=== PATIENT | female | born 1980 | race Caucasian/White ===

== ENCOUNTER 2018-12-11 06:44 | Emergency (ER) | payer OTHER ==
[~2018-12-11] VITALS: Ht 154.9 cm; Wt 60.0 kg
--- NOTE | 2018-12-11 08:01 | REP ---
Chest x-ray: Two views. History: Abdominal pain. Left arm numbness. . Comparison study: No comparison chest x-ray. . Findings: The lungs are well inflated and free of infiltrate. The pleural angles are sharp. The heart size is normal. Pulmonary vasculature is not increased. No significant bony abnormality is seen. Impression: Negative chest x-ray. Electronically Signed by Mt Mendiola MD 12/11/2018 07:53 A
[2018-12-11 08:10] LABS: BASO # 0.1 10^3/uL (0.0-0.2); BASO % 1.9 % (0.0-1.0); EOS % 0.9 % (0.0-3.0); HEMATOCRIT 41.2 % (36.0-47.0); HEMOGLOBIN 13.7 g/dl (12.0-15.5); LYMPH # 1.6 10^3/uL (1.5-4.5); LYMPH % 33.6 % (24.0-44.0); MEAN CORPUSCULAR HEMOGLOBIN 32.5 pg (27.0-33.0); MEAN CORPUSCULAR HGB CONC 33.3 g/dl (32.0-36.5); MEAN CORPUSCULAR VOLUME 97.6 fl (80.0-96.0); MONO # 0.3 10^3/uL (0.0-0.8); MONO % 6.6 % (0.0-5.0); NEUTROPHILS # 2.7 10^3/uL (1.8-7.7); NEUTROPHILS % 56.8 % (36.0-66.0); PLATELET COUNT, AUTOMATED 183 10^3/uL (150-450); RED BLOOD COUNT 4.22 10^6/uL (4.00-5.40); WHITE BLOOD COUNT 4.7 10^3/uL (4.0-10.0)
[2018-12-11 08:54] LABS: BLOOD UREA NITROGEN 8 MG/DL (7-18); CREATININE FOR GFR 0.77 MG/DL (0.55-1.30); GLOMERULAR FILTRATION RATE > 60.0 (>60); GLUCOSE, FASTING 82 MG/DL (70-100)
[2018-12-11 08:55] LABS: CARBON DIOXIDE LEVEL 30 MEQ/L (21-32); CHLORIDE LEVEL 104 MEQ/L (98-107); POTASSIUM SERUM 3.5 MEQ/L (3.5-5.1); SODIUM LEVEL 142 MEQ/L (136-145)
[2018-12-11 08:56] LABS: ALT/SGPT 53 U/L (12-78); BILIRUBIN,DIRECT 0.2 MG/DL (0.0-0.2); BILIRUBIN,TOTAL 0.8 MG/DL (0.2-1.0); CALCIUM LEVEL 9.2 MG/DL (8.5-10.1); CK-MB VALUE MASS 1.2 NG/ML (<3.6); CPK CREATINE PHOSPHOKINASE 96 U/L (26-192); MB/CK RELATIVE INDEX 1.25 (< OR =4); TOTAL PROTEIN 7.3 GM/DL (6.4-8.2)
[2018-12-11 08:57] LABS: LIPASE 194 U/L (73-393); TROPONIN I < 0.02 NG/ML (< 0.10)
[2018-12-11 09:36] LABS: HCG, SERUM QUALITATIVE NEGATIVE (NEGATIVE)
--- NOTE | 2018-12-11 10:24 | REP ---
CT OF THE CERVICAL SPINE WITHOUT CONTRAST INDICATION: Left arm pain/numbness/radiculopathy. COMPARISON: None TECHNIQUE: Axial CT of the cervical spine was performed without contrast. Bone reformatted images were provided in the axial, coronal and sagittal planes. FINDINGS: There is no acute fracture or subluxation of the cervical spine. There is straightening of the cervical lordosis, which could be related to positioning and/or muscle spasm. There is normal and curvature alignment of the cervical spine. The craniocervical junction is intact. Evaluation of the spinal canal is limited but without significant narrowing. The paraspinal soft tissues are within normal limits. IMPRESSION: 1. No acute fracture or subluxation of the cervical spine. 2. Straightening of cervical lordosis which could be related to positioning or muscle spasm. Electronically Signed by Piper Valladares MD 12/11/2018 01:44 P
[2018-12-11] MEDS ORDERED: KETOROLAC 30 MG/ML VIAL (J1885) IV ONE (11:45)
[2018-12-11] MEDS ORDERED: CYCLOBENZAPRINE 5MG TABLET PO ONE (11:45)
[2018-12-11 13:02] LABS: CK-MB VALUE MASS < 1.0 NG/ML (<3.6); CPK CREATINE PHOSPHOKINASE 83 U/L (26-192); TROPONIN I < 0.02 NG/ML (< 0.10)
[2018-12-11] MEDS ORDERED: ONDANSETRON 4MG/2ML VIAL (J2405) IV ONE (14:30)
[2018-12-11] MEDS ORDERED: MORPHINE 2 MG/ML 1ML VIAL (J2270) IV ONE (14:30)
[2018-12-11] MEDS ORDERED: ISOVUE-370 76% 100ML VIAL (Q9967) As Ordered ONE (15:00)
[2018-12-11 16:16] VITALS: BP 122/68
[2018-12-11] MEDS ORDERED: GABA-1171 PO (16:26)
--- NOTE | 2018-12-12 05:56 | ECGEPIP ---
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
--- NOTE | 2018-12-12 07:06 | ECGEPIP ---
[facility] - ED Test Date: 2018-12-11 Pat Name: VIJAYA HUA Department: Room: - Gender: Female [employer]: : 1980 Requested By: CONOR Johnson PA-C Order Number: [id number] Reading MD: Romario Montoya Measurements Intervals [place] Rate: 65 P: 48 AL: 148 QRS: 41 QRSD: 86 T: 31 QT: 407 QTc: 424 Interpretive Statements SINUS RHYTHM SIMILAR TO PRIOR ON SAME DATE Electronically Signed on 12-12-2018 7:06:49 EDT by Romario Montoya
== END 2018-12-11 16:33 | disposition home or self-care (01) ==
LOC: M ED 06:44
DX: M54.12 Radiculopathy, cervical region (principal); Z91.011 Allergy to milk products; Z91.013 Allergy to seafood
CPT/HCPCS: 71046; 72125; 80048; 80076; 82550; 82553; 83690; 84484; 84703; 85025; 85379; 93005; 96374; 96375; 99284; J1885; J2270; J2405; Q9967

== ENCOUNTER → 2019-09-29 | Outpatient (REF) | payer OTHER ==
[~2019-09-29] MED LIST: GABA-1171 PO
== END ==
LOC: M LAB REF 14:36
PROVIDERS: ATTEND Radiology Diagnostic Radiology
DX: C50.919 Malignant neoplasm of unspecified site of unspecified female breast (principal)

== ENCOUNTER 2021-04-20 15:00 | Outpatient (CLI) | payer OTHER ==
[~2021-04-20] VITALS: Ht 154.9 cm; Wt 63.6 kg
[~2021-04-20 15:00] MED LIST changes: +SODIUM CHLORIDE 0.9% INJ 10 ML SYR IV SCH
[2021-04-20 15:05] VITALS: BP 120/70
[2021-04-20] MEDS ORDERED: TAMO20TA8 PO (15:22)
[2021-05-12] MEDS ORDERED: TUMETAB PO (09:31)
[2021-05-12] MEDS ORDERED: COLLPOW8 XX (09:31)
[2021-05-12] MEDS ORDERED: D3 +TAB PO (09:31)
[2021-05-12] MEDS ORDERED: TAMO20TA8 PO (10:11)
== END 2021-04-20 15:30 | disposition home or self-care (01) ==
LOC: M INFU 15:00
PROVIDERS: ATTEND Family Medicine
DX: C50.919 Malignant neoplasm of unspecified site of unspecified female breast (principal)
CPT/HCPCS: 96523; J1642

== ENCOUNTER → 2021-09-13 | Outpatient (CLI) | payer OTHER ==
[~2021-09-13] MED LIST changes: +COLLPOW8 XX; +D3 +TAB PO; -SODIUM CHLORIDE 0.9% INJ 10 ML SYR IV SCH; +TAMO20TA8 PO; +TUMETAB PO
== END ==
LOC: M WHC 09:16
PROVIDERS: ATTEND Family Medicine
DX: Z12.31 Encounter for screening mammogram for malignant neoplasm of breast (principal); Z85.3 Personal history of malignant neoplasm of breast; Z78.0 Asymptomatic menopausal state

== ENCOUNTER 2021-10-17 08:03 | Day surgery (SDC) | payer OTHER ==
[~2021-10-17] VITALS: Ht 154.9 cm; Wt 65.9 kg
[~2021-10-17 08:03] MED LIST changes: +LR 1,000 ML IV SCH
[2021-10-17 08:28] LABS: HEMATOCRIT 41.8 % (36.0-47.0); HEMOGLOBIN 13.9 g/dl (12.0-15.5); MEAN CORPUSCULAR HEMOGLOBIN 31.7 pg (27.0-33.0); MEAN CORPUSCULAR HGB CONC 33.3 g/dl (32.0-36.5); MEAN CORPUSCULAR VOLUME 95.2 fl (80.0-96.0); PLATELET COUNT, AUTOMATED 187 10^3/uL (150-450); RED BLOOD COUNT 4.39 10^6/uL (4.00-5.40); WHITE BLOOD COUNT 2.6 10^3/uL (4.0-10.0)
[2021-10-17] MEDS ORDERED: SCOPOLAMINE 1MG TRANSDERMAL PATCH TOP ONE (08:30)
[2021-10-17] MEDS ORDERED: BUPIVACAINE HCL 0.25% 30ML VIAL As Ordered ONE (11:58)
[2021-10-17] MEDS ORDERED: fentaNYL 100 MCG/2 ML INJECTION As Ordered ONE ×2 (12:47→12:52)
[2021-10-17] MEDS ORDERED: MIDAZOLAM INJ 2MG/2ML VIAL (J2250 PER 1MG) As Ordered ONE (12:47)
[2021-10-17] MEDS ORDERED: propofoL 200 MG/20 ML VIAL As Ordered ONE (12:47)
[2021-10-17] MEDS ORDERED: LIDOCAINE 2% 100MG/5ML SDV (FOR ANES.) As Ordered ONE (12:48)
[2021-10-17] MEDS ORDERED: ONDANSETRON 4MG/2ML VIAL As Ordered ONE (12:51)
[2021-10-17] MEDS ORDERED: dexameTHASONE 4 MG/ML 1ML VIAL (J1100 PER 1MG) As Ordered ONE (12:51)
[2021-10-17] MEDS ORDERED: ACETAMINOPHEN 1000MG 100ML IV BTL (OFIRMEV) (J0131 PER 10MG) As Ordered ONE (12:51)
[2021-10-17] MEDS ORDERED: SUGAMMADEX SODIUM 500 MG/5 ML VIAL (BRIDION) As Ordered ONE (12:53)
[2021-10-17] MEDS ORDERED: KETOROLAC 60MG 2ML VIAL As Ordered ONE (13:35)
[2021-10-17] MEDS ORDERED: HYDROMORPHONE HCL 0.5 MG/ 0.5 ML SYRINGE (J1170 PER 1) IV PRN (13:55)
[2021-10-17] MEDS ORDERED: fentaNYL 100 MCG/2 ML INJECTION IV PRN (13:55)
[2021-10-17] MEDS ORDERED: LR 1,000 ML IV SCH (13:55)
[2021-10-17] MEDS ORDERED: ONDANSETRON 4MG/2ML VIAL IV PRN (13:55)
[2021-10-17] MEDS: oxyCODONE 5MG TAB PO PRN ×2 (14:22→15:57)
[2021-10-17 16:22] VITALS: BP 114/64
== END 2021-10-17 16:30 | disposition home or self-care (01) ==
LOC: M SDC 08:03
PROVIDERS: ATTEND Obstetrics & Gynecology
DX: Z30.2 Encounter for sterilization (principal); N83.292 Other ovarian cyst, left side; K21.9 Gastro-esophageal reflux disease without esophagitis; Z85.3 Personal history of malignant neoplasm of breast; Z92.21 Personal history of antineoplastic chemotherapy; Z92.3 Personal history of irradiation; Z87.891 Personal history of nicotine dependence; Z91.018 Allergy to other foods; Z91.013 Allergy to seafood; E73.9 Lactose intolerance, unspecified; Z79.899 Other long term (current) drug therapy
CPT/HCPCS: 36415; 58661; 58662; 81025; 85027; 86850; 86900; 86901; 88108; 88302; 88305; 88313; J0131; J1100; J1885; J2250; J2405; J3010

== ENCOUNTER 2021-11-21 10:44 | Outpatient (RCR) | payer OTHER ==
[~2021-11-21 10:44] MED LIST changes: -LR 1,000 ML IV SCH
== END 2021-11-26 ==
LOC: M PT 10:44
PROVIDERS: ATTEND Internal Medicine Medical Oncology
DX: I89.0 Lymphedema, not elsewhere classified (principal); C50.919 Malignant neoplasm of unspecified site of unspecified female breast

== ENCOUNTER 2021-12-15 13:30 | Outpatient (RCR) | payer OTHER ==
[2021-12-22] MEDS ORDERED: TAMO20TA8 PO (08:22)
== END 2021-12-27 ==
LOC: M PT 13:30
PROVIDERS: ATTEND Internal Medicine Medical Oncology
DX: I89.0 Lymphedema, not elsewhere classified (principal); C50.919 Malignant neoplasm of unspecified site of unspecified female breast

== ENCOUNTER → 2022-02-07 | Outpatient (CLI) | payer OTHER | LOC: M RAD 09:58 | PROVIDERS: ATTEND Internal Medicine Medical Oncology | DX: C50.911 Malignant neoplasm of unspecified site of right female breast (principal) | CPT/HCPCS: 78306; A9503 ==

== ENCOUNTER → 2022-02-22 | Outpatient (CLI) | payer OTHER | LOC: M WHC 07:35 | PROVIDERS: ATTEND Internal Medicine Medical Oncology | DX: C50.911 Malignant neoplasm of unspecified site of right female breast (principal) ==

== ENCOUNTER 2022-06-04 15:29 | Outpatient (RCR) | payer OTHER | END 2022-06-26 | LOC: M PT 15:29 | PROVIDERS: ATTEND Internal Medicine Medical Oncology | DX: I89.0 Lymphedema, not elsewhere classified (principal) ==

== ENCOUNTER → 2022-09-14 | Outpatient (CLI) | payer OTHER | LOC: M WHC 10:10 | PROVIDERS: ATTEND Internal Medicine Medical Oncology | DX: R92.8 Other abnormal and inconclusive findings on diagnostic imaging of breast (principal); C50.911 Malignant neoplasm of unspecified site of right female breast ==

== ENCOUNTER → 2022-10-04 | Outpatient (CLI) | payer OTHER | LOC: M WHC 08:30 | PROVIDERS: ATTEND Internal Medicine Medical Oncology | DX: R92.8 Other abnormal and inconclusive findings on diagnostic imaging of breast (principal) | CPT/HCPCS: 77065; G0279 ==

== ENCOUNTER → 2023-09-16 | Outpatient (CLI) | payer OTHER ==
[~2023-09-16] MED LIST changes: +NOXI1TAB PO
== END ==
LOC: M WHC 13:25
PROVIDERS: ATTEND Internal Medicine Medical Oncology
DX: C50.919 Malignant neoplasm of unspecified site of unspecified female breast (principal)
CPT/HCPCS: 77066; G0279

== ENCOUNTER → 2023-10-08 | Outpatient (CLI) | payer OTHER ==
[~2023-10-08] MED LIST changes: +PROHANCE 279.3MG/ML 15ML VIAL ONE
== END ==
LOC: M PLAIMG 14:21
PROVIDERS: ATTEND Internal Medicine Medical Oncology
DX: D72.829 Elevated white blood cell count, unspecified (principal); N63.11 Unspecified lump in the right breast, upper outer quadrant; N63.12 Unspecified lump in the right breast, upper inner quadrant
CPT/HCPCS: A9576; C8908

== ENCOUNTER → 2023-11-07 | Outpatient (CLI) | payer OTHER ==
[~2023-11-07] MED LIST changes: -PROHANCE 279.3MG/ML 15ML VIAL ONE
[2023-11-07 07:54] VITALS: TEMP 98.5
[2023-11-07 09:34] VITALS: BP 116/80; O2SAT 99
== END ==
LOC: M WHCPRO 07:41
PROVIDERS: ATTEND Internal Medicine Medical Oncology
DX: N63.12 Unspecified lump in the right breast, upper inner quadrant (principal)

== ENCOUNTER → 2024-05-29 | Outpatient (CLI) | payer OTHER ==
[~2024-05-29] MED LIST changes: +PROHANCE 279.3MG/ML 15ML VIAL ONE
== END ==
LOC: M PLAIMG 09:01
PROVIDERS: ATTEND Nurse Practitioner Family
DX: N63.14 Unspecified lump in the right breast, lower inner quadrant (principal); R92.8 Other abnormal and inconclusive findings on diagnostic imaging of breast
CPT/HCPCS: A9576; C8908

== ENCOUNTER → 2024-08-06 | Outpatient (CLI) | payer OTHER ==
[~2024-08-06] MED LIST changes: -PROHANCE 279.3MG/ML 15ML VIAL ONE
== END ==
LOC: M WHC 07:56
PROVIDERS: ATTEND Surgery
DX: Z12.39 Encounter for other screening for malignant neoplasm of breast (principal); N63.14 Unspecified lump in the right breast, lower inner quadrant; R92.333 Mammographic heterogeneous density, bilateral breasts; R92.8 Other abnormal and inconclusive findings on diagnostic imaging of breast; Z85.3 Personal history of malignant neoplasm of breast; Z92.21 Personal history of antineoplastic chemotherapy; Z92.3 Personal history of irradiation
CPT/HCPCS: 76642; 77066; G0279

== ENCOUNTER → 2024-11-17 | Outpatient (CLI) | payer OTHER ==
[~2024-11-17] MED LIST changes: +METF500T13 PO; +POTA8CAP10 PO; +PROHANCE 279.3MG/ML 15ML VIAL ONE
== END ==
LOC: M PLAIMG 12:43
PROVIDERS: ATTEND Surgery
DX: Z12.31 Encounter for screening mammogram for malignant neoplasm of breast (principal); Z85.3 Personal history of malignant neoplasm of breast; N63.14 Unspecified lump in the right breast, lower inner quadrant
CPT/HCPCS: A9576; C8908

== ENCOUNTER → 2024-12-29 | Outpatient (CLI) | payer OTHER ==
[~2024-12-29] VITALS: Ht 162.6 cm; Wt 63.0 kg
[~2024-12-29] MED LIST changes: -PROHANCE 279.3MG/ML 15ML VIAL ONE
[2024-12-29 10:32] VITALS: TEMP 97.8
[2024-12-29] MEDS: NS (Normal Saline) 0.9% 1,000 ML IV SCH (10:42)
[2024-12-29] MEDS: ceFAZolin SODIUM 2 GM in DEXTROSE 5% (D5W) ADV/MINI-BAG 50 ML IV ONE (10:42)
[2024-12-29] MEDS: MIDAZOLAM INJ 2 MG/2 ML VIAL IV PRN (11:06)
[2024-12-29] MEDS: LIDOCAINE 1% MDV 20 ML VIAL SC SCH (11:23)
[2024-12-29 12:05] VITALS: BP 109/74; O2SAT 100
== END ==
LOC: M IRPRO 10:03
PROVIDERS: ATTEND Internal Medicine Medical Oncology
DX: Z85.3 Personal history of malignant neoplasm of breast (principal)
CPT/HCPCS: 36590; 99152; 99153; J0690; J2250; J3010